=== PATIENT | female | born 1975 | race Hispanic/Latino ===

== ENCOUNTER 2019-01-20 17:22 | Emergency (ER) | payer BC ==
--- NOTE | 2019-01-20 17:38 | CT ---
CT BRAIN 01/20/19 HISTORY: Left arm numbness. Noncontrast enhanced CT images of the brain is obtained on 01/20/19. Noncontrast enhanced CT images of the brain obtained. The brain is unremarkable. No evidence of intra cranial masses, hemorrhages, strokes or contusions seen. Ventricles are of normal size. IMPRESSION: Normal CT brain. POS: [facility]
[2019-01-20 17:52] LABS: #Basophils 0.1 thou/uL (0.0-0.2); #Eosinphils 0.1 thou/uL (0.0-0.7); #Lymphocytes 1.2 thou/uL (1.20-3.40); #Monocytes 0.7 thou/uL (0.11-0.59); %Basophils 0.5 % (0.0-1.0); %Eosinophils 0.7 % (0.0-10.0); %Lymphocytes 11.8 % (21.0-51.0); %Monocytes 6.9 % (0.0-10.0); Hemoglobin 13.9 g/dL (12.0-16.0); Mean Corpuscular HGB CONC 33.6 g/dL (32.0-36.0); Mean Corpuscular Hemoglobin 31.5 pg (27.0-31.0); Mean Corpuscular Volume 93.8 fL (78.0-98.0); Mean Platelet Volume 7.6 fL (7.4-10.4); Platelet Count 205 thou/uL (130-400); RBC Distribution Width 12.2 % (11.5-14.5); Red Blood Cell (RBC) Count 4.41 mill/uL (4.20-5.40)
[2019-01-20 17:59] LABS: PTT 28.1 SEC (22.9-36.1); Prothrombin Time 13.4 SEC (12.0-14.7)
[2019-01-20 18:03] LABS: BHCG - Serum Negative (NEGATIVE); Pregs Control Background? CLEAR/WHITE (CLR/WHITE); Pregs Control Bar Appear? YES (CONTROL BAR)
[2019-01-20 18:06] LABS: ALT (SGPT) 17 U/L (8-55); AST (SGOT) 19 U/L (5-34); Albumin 3.9 g/dL (3.5-5.0); Alkaline Phosphatase 50 U/L (40-150); Anion Gap 14 mmol/L (10-20); BUN (Urea Nitrogen) 9 mg/dL (7.0-18.7); Bilirubin, Total 0.2 mg/dL (0.2-1.2); Calc. Creatinine Clearance 0 mL/min (70-130); Calcium 9.2 mg/dL (7.8-10.44); Carbon Dioxide 21 mmol/L (22-29); Chloride 105 mmol/L (98-107); Estimated GFR-MDRD Greater than 90; Globulin 3.1 g/dL (2.4-3.5); Glucose 95 mg/dL (70-105); Potassium 3.9 mmol/L (3.5-5.1); Sodium 136 mmol/L (136-145)
[2019-01-20] MEDS ORDERED: Metoclopramide HCl 10 MG/2 ML VIAL ONE (18:13)
[2019-01-20] MEDS ORDERED: diphenhydrAMINE 50 MG/ML VIAL ONE (18:13)
[2019-01-20 18:35] LABS: CK (CPK) 92 U/L (29-168)
== END 2019-01-20 20:30 | disposition home or self-care (01) ==
LOC: ERS 17:22
DX: R51 Headache (principal); R20.2 Paresthesia of skin
CPT/HCPCS: 36416; 70450; 80053; 82550; 84484; 84703; 85025; 85610; 85730; 93005; 96361; 96374; 96375; J1200; J2765

== ENCOUNTER 2020-01-06 01:42 | Emergency (ER) | payer BC ==
[2020-01-06] MEDS ORDERED: Ondansetron PF 4 MG/2 ML Vial ONE (02:39)
[2020-01-06 03:07] LABS: #Basophils 0.1 thou/uL (0.0-0.2); #Eosinphils 0.1 thou/uL (0.0-0.7); #Lymphocytes 1.8 thou/uL (1.20-3.40); #Monocytes 0.4 thou/uL (0.11-0.59); #Neutrophils 4.6 thou/uL (1.40-6.50); %Basophils 0.8 % (0.0-1.0); %Eosinophils 1.6 % (0.0-10.0); %Lymphocytes 25.6 % (21.0-51.0); %Monocytes 5.4 % (0.0-10.0); %Neutrophils 66.6 % (42.0-75.0); Hemoglobin 14.2 g/dL (12.0-16.0); Mean Corpuscular HGB CONC 33.9 g/dL (32.0-36.0); Mean Corpuscular Hemoglobin 31.6 pg (27.0-31.0); Mean Corpuscular Volume 93.1 fL (78.0-98.0); Mean Platelet Volume 7.9 fL (7.4-10.4); Platelet Count 247 thou/uL (130-400); RBC Distribution Width 11.9 % (11.5-14.5); White Blood Cell (WBC) Count 6.9 thou/uL (4.8-10.8)
[2020-01-06 03:26] LABS: Acetaminophen Less than 6.0 mcg/mL (10.0-30.0); Alcohol 205 mg/dL (Less than 10); Salicylate Less than 8.0 mg/dL (15.0-30.0)
[2020-01-06 03:27] LABS: ALT (SGPT) 22 U/L (8-55); AST (SGOT) 20 U/L (5-34); Albumin 4.1 g/dL (3.5-5.0); Alkaline Phosphatase 48 U/L (40-110); Anion Gap 13 mmol/L (10-20); BUN (Urea Nitrogen) Less than 4 mg/dL (7.0-18.7); Bilirubin, Total 0.4 mg/dL (0.2-1.2); Calc. Creatinine Clearance 0 mL/min (70-130); Calcium 8.3 mg/dL (7.8-10.44); Carbon Dioxide 20 mmol/L (22-29); Chloride 112 mmol/L (98-107); Estimated GFR-MDRD Greater than 90; Globulin 3.1 g/dL (2.4-3.5); Glucose 97 mg/dL (70-105); Potassium 3.1 mmol/L (3.5-5.1); Protein, Total 7.2 g/dL (6.0-8.3); Sodium 142 mmol/L (136-145)
--- NOTE | 2020-01-06 09:13 | CT ---
PRELIMINARY REPORT/[facility]/EMERGENCY AFTER HOURS PROCEDURE: EXAM: CT Head Without Intravenous Contrast. CLINICAL HISTORY: F44 presents to the ED intoxicated with c/o anxiety. Pt was called to ED by daughter. Family reports that pt drinks each week. Pt was given Zofran by EMS. TECHNIQUE: Axial computed tomography images of the head/brain without intravenous contrast. COMPARISON: None provided. FINDINGS: BRAIN: No acute intraparenchymal hemorrhage. No mass lesion. No CT evidence for acute territorial inf arct. No midline shift or extra-axial collection. VENTRICLES: No hydrocephalus. ORBITS: The orbits are unremarkable. SINUSES AND MASTOIDS: The paranasal sinuses and mastoid air cells are clear. SOFT TISSUES: No significant facial or scalp soft tissue swelling evident. No radiopaque foreign body is seen. BONES: No acute skull fracture. IMPRESSION: No acute intracranial abnormality. ELECTRONICALLY SIGNED BY: Marcelo Urban MD Jan 06, 2020 3:18:27 AM [employer] This report is intended for review by the ordering physician only, in accordance of law. If you recei ve this report in error, please call [facility] at [phone]. FINAL REPORT EMERGENCY AFTER HOURS CT BRAIN WITHOUT CONTRAST: HISTORY: Altered mental status. COMPARISON: CT brain of 01/20/19. FINDINGS: No acute hemorrhage or infarct. No midline shift or mass effect. Ventricular size and extra-axial CSF spaces are normal. Calvarium is intact. The paranasal sinuses and mastoids are clear. IMPRESSION: No acute intracranial abnormality. Findings and impression are concordant with the preliminary report by [facility]. POS: OFF
== END 2020-01-06 05:05 | disposition home or self-care (01) ==
LOC: ERS 01:42
DX: F10.129 Alcohol abuse with intoxication, unspecified (principal); Y90.7 Blood alcohol level of 200-239 mg/100 ml
CPT/HCPCS: 36415; 70450; 80053; 80307; 85025; 96361; 96374; J2405

== ENCOUNTER 2021-12-15 20:42 | Emergency (ER) | payer BC ==
[2021-12-15 22:37] LABS: #Eosinphils 0.3 thou/uL (0.0-0.7); #Lymphocytes 2.1 thou/uL (1.20-3.40); #Monocytes 0.5 thou/uL (0.11-0.59); #Neutrophils 3.4 thou/uL (1.40-6.50); %Basophils 0.1 % (0.0-1.0); %Lymphocytes 32.6 % (21.0-51.0); %Monocytes 8.6 % (0.0-10.0); %Neutrophils 53.6 % (42.0-75.0); Hemoglobin 13.1 g/dL (12.0-16.0); Mean Corpuscular HGB CONC 34.1 g/dL (32.0-36.0); Mean Corpuscular Hemoglobin 31.3 pg (27.0-31.0); Mean Corpuscular Volume 91.9 fL (78.0-98.0); Mean Platelet Volume 7.3 fL (7.4-10.4); Platelet Count 231 thou/uL (130-400); RBC Distribution Width 12.1 % (11.5-14.5); Red Blood Cell (RBC) Count 4.18 mill/uL (4.20-5.40); White Blood Cell (WBC) Count 6.3 thou/uL (4.8-10.8)
[2021-12-15 22:57] LABS: ALT (SGPT) 45 U/L (8-55); AST (SGOT) 25 U/L (5-34); Albumin 3.7 g/dL (3.5-5.0); Alkaline Phosphatase 55 U/L (40-110); Anion Gap 12 mmol/L (10-20); BUN (Urea Nitrogen) 10 mg/dL (7.0-18.7); Bilirubin, Total 0.3 mg/dL (0.2-1.2); Calc. Creatinine Clearance 0 mL/min (70-130); Calcium 8.5 mg/dL (7.8-10.44); Carbon Dioxide 24 mmol/L (22-29); Chloride 106 mmol/L (98-107); Glucose 89 mg/dL (70-105); Potassium 3.9 mmol/L (3.5-5.1); Protein, Total 6.7 g/dL (6.0-8.3); Sodium 138 mmol/L (136-145)
== END 2021-12-15 23:35 | disposition home or self-care (01) ==
LOC: ERS 20:42
DX: L03.213 Periorbital cellulitis (principal)
CPT/HCPCS: 36415; 80053; 85025; 99283

== ENCOUNTER 2023-10-05 15:14 | Emergency (ER) | payer BC ==
[2023-10-05] MEDS ORDERED: Ketorolac Tromethamine 30 MG/ML VIAL ONE (17:40)
[2023-10-05] MEDS ORDERED: Orphenadrine Citrate 60 MG/2 ML VIAL ONE (17:40)
[2023-10-05] MEDS ORDERED: HYDROcodone/Acetaminophen 5/325 mg Tablet ONE (18:34)
== END 2023-10-05 18:38 | disposition home or self-care (01) ==
LOC: ERS 15:14
DX: M54.31 Sciatica, right side (principal); M54.12 Radiculopathy, cervical region
CPT/HCPCS: 96372; 99283; J1885; J2360

== ENCOUNTER 2023-10-06 16:30 | Observation (INO) | payer BC ==
[~2023-10-06 16:30] MED LIST: Iopamidol-370 76% 500 ML MDV (1 ML CHARGE) ONE
[2023-10-06] MEDS ORDERED: Diazepam 5 MG TAB ONE (19:13)
[2023-10-06] MEDS ORDERED: Ketorolac Tromethamine 30 MG/ML VIAL ONE (19:13)
[2023-10-06 19:27] LABS: Bacteria/HPF None Seen HPF (None Seen); Bilirubin Negative (Negative); Blood, Urine Negative (Negative); CAUTI Indications for Culture Pelvic or flank pain; Clarity Clear (Clear); Glucose, Urine (Dipstick) Greater than 1000 mg/dL (Negative); Ketone, Urine 10 mg/dL (Negative); Leukocyte Negative Leu/uL (Negative); Mucous/LPF Rare LPF (<2+); Nitrite Negative (Negative); Protein, Urine (Dipstick) 20 mg/dL (Neg-Trace); RBC/HPF 0-3 HPF (0-3); Specific Gravity, Urine 1.035 (1.002-1.036); Urobilinogen Normal mg/dL (Less than 2)
[2023-10-06 19:31] LABS: Urine Culture Reflex No No
[2023-10-06 22:19] LABS: #Neutrophils 11.6 thou/uL (1.40-6.50); %Basophils 0.2 % (0.0-1.0); %Eosinophils 0.1 % (0.0-10.0); %Lymphocytes 14.5 % (21.0-51.0); %Monocytes 6.9 % (0.0-10.0); %Neutrophils 77.9 % (42.0-75.0); Hematocrit 38.9 % (36.0-47.0); Hemoglobin 13.1 g/dL (12.0-16.0); Mean Corpuscular HGB CONC 33.7 g/dL (32.0-36.0); Mean Corpuscular Hemoglobin 30.8 pg (27.0-31.0); Mean Corpuscular Volume 91.3 fl (78.0-98.0); Platelet Count 277 10x3/uL (130-400); RBC Distribution Width 13.4 % (11.5-14.5); Red Blood Cell (RBC) Count 4.26 mill/uL (4.20-5.40); White Blood Cell (WBC) Count 14.9 10x3/uL (4.8-10.8)
[2023-10-06 22:20] LABS: Actual Bicarbonate (HCO3v) 21.3 mEq/L (22-28); Calcium, Ionized (venous) 1.12 mmol/L (1.16-1.32); Chloride (VBG) 105 mmol/L (98-106); Hematocrit-VBG 40 % (36.0-47.0); Hemoglobin (Hb) 13.7 g/dL (11.7-16.0); Potassium (VBG) 3.44 mmol/L (3.70-5.30); Sodium 139 mmol/L (133-146); pH (venous) 7.439 (7.32-7.43)
[2023-10-06 22:44] LABS: ALT (SGPT) 705 U/L (8-55); AST (SGOT) 352 U/L (5-34); Albumin 3.6 g/dL (3.5-5.0); Alkaline Phosphatase 80 U/L (40-110); Anion Gap 13 mmol/L (10-20); BUN (Urea Nitrogen) 16 mg/dL (7.0-18.7); Bilirubin, Total 0.4 mg/dL (0.2-1.2); Calc. Creatinine Clearance 0 mL/min (70-130); Calcium 8.7 mg/dL (7.8-10.44); Carbon Dioxide 22 mmol/L (22-29); Chloride 109 mmol/L (98-107); Estimated GFR 113; Globulin 2.8 g/dL (2.4-3.5); Glucose 145 mg/dL (70-105); Magnesium 1.9 mg/dL (1.6-2.6); Potassium 3.4 mmol/L (3.5-5.1); Protein, Total 6.4 g/dL (6.0-8.3); Sodium 141 mmol/L (136-145)
[2023-10-06] MEDS ORDERED: Potassium Chloride 20 MEQ TAB ONE (23:25)
[2023-10-06] MEDS ORDERED: Lidocaine 4% Patch TD SCH (23:30)
[2023-10-06 23:33] LABS: Acetaminophen Less than 10 mcg/mL (10.0-30.0)
[2023-10-06 23:52] LABS: HBCM Index 0.08 S/CO (0-0.79); HBSAg Index 0.18 S/CO (0-0.99); Hep A IgM AB Non-Reactive S/CO (NonReactive); Hep A IgM S/CO 0.24 S/CO (0-0.79); Hep B Surf Ag Non-Reactive S/CO (NonReactive); Hep C IgG Ab Non-Reactive S/CO (NonReactive); Hep C Index 0.08 S/CO (0-0.79); Hepatitis B Core IgM Abs Non-Reactive S/CO (NonReactive)
[2023-10-07] MEDS ORDERED: Ondansetron ODT 4 MG TAB PO PRN (03:19)
[2023-10-07] MEDS ORDERED: Acetaminophen 650 MG Suppository PR PRN (03:19)
[2023-10-07] MEDS ORDERED: Acetaminophen 325 MG TAB PO PRN (03:19)
[2023-10-07] MEDS ORDERED: Ondansetron PF 4 MG/2 ML Vial IVP PRN (03:19)
[2023-10-07 05:48] VITALS: BMI 24.7
[2023-10-07] MEDS: Morphine 4 MG/ML VIAL SLOW IVP PRN ×2 (05:55→10:28)
[2023-10-07 07:07] LABS: ALT (SGPT) 607 U/L (8-55); AST (SGOT) 205 U/L (5-34); Albumin 3.4 g/dL (3.5-5.0); Alkaline Phosphatase 62 U/L (40-110); Anion Gap 11 mmol/L (10-20); BUN (Urea Nitrogen) 13 mg/dL (7.0-18.7); Bilirubin, Total 0.3 mg/dL (0.2-1.2); Calc. Creatinine Clearance 125 mL/min (70-130); Calcium 8.7 mg/dL (7.8-10.44); Carbon Dioxide 25 mmol/L (22-29); Chloride 109 mmol/L (98-107); Estimated GFR 113; Globulin 2.8 g/dL (2.4-3.5); Glucose 93 mg/dL (70-105); Protein, Total 6.2 g/dL (6.0-8.3); Sodium 141 mmol/L (136-145)
[2023-10-07 07:24] LABS: Hemoglobin A1c 5.3 % (4.0-6.0)
[2023-10-07 07:43] LABS: Cardiac Risk 2.8 (Less than 4.5)
[2023-10-07] MEDS ORDERED: Senokot 8.6 MG TAB PO SCH (11:15)
[2023-10-07] MEDS ORDERED: HYDROcodone/Acetaminophen 5/325 mg Tablet PO PRN ×2 (12:15)
[2023-10-07] MEDS ORDERED: Transdermal Patch Removal TOP SCH (13:00)
[2023-10-07] MEDS ORDERED: Ketorolac Tromethamine 30 MG/ML VIAL IVP SCH (15:30)
[2023-10-07] MEDS ORDERED: Gabapentin 300 MG CAP PO SCH (15:45)
[2023-10-07] MEDS ORDERED: Cyclobenzaprine 10 MG TAB PO PRN (15:45)
[2023-10-07] MEDS: Ketorolac Tromethamine 30 MG/ML VIAL IVP SCH (20:39)
[2023-10-07] MEDS: Gabapentin 300 MG CAP PO SCH (20:39)
[2023-10-07] MEDS: Senokot 8.6 MG TAB PO SCH (20:40)
[2023-10-08] MEDS: Ketorolac Tromethamine 30 MG/ML VIAL IVP SCH ×2 (04:43→09:53)
[2023-10-08 05:42] LABS: #Eosinphils 0.3 thou/uL (0.0-0.7); #Monocytes 0.5 thou/uL (0.11-0.59); #Neutrophils 3.3 thou/uL (1.40-6.50); %Basophils 0.5 % (0.0-1.0); %Eosinophils 3.5 % (0.0-10.0); %Lymphocytes 45.7 % (21.0-51.0); %Monocytes 6.6 % (0.0-10.0); %Neutrophils 43.3 % (42.0-75.0); Hematocrit 40.2 % (36.0-47.0); Hemoglobin 13.1 g/dL (12.0-16.0); Mean Corpuscular HGB CONC 32.6 g/dL (32.0-36.0); Mean Corpuscular Hemoglobin 30.2 pg (27.0-31.0); Mean Corpuscular Volume 92.6 fl (78.0-98.0); Mean Platelet Volume 9.9 fL (7.4-10.4); Platelet Count 265 10x3/uL (130-400); RBC Distribution Width 13.6 % (11.5-14.5); Red Blood Cell (RBC) Count 4.34 mill/uL (4.20-5.40); White Blood Cell (WBC) Count 7.7 10x3/uL (4.8-10.8)
[2023-10-08 06:15] LABS: ALT (SGPT) 416 U/L (8-55); AST (SGOT) 87 U/L (5-34); Albumin 3.1 g/dL (3.5-5.0); Alkaline Phosphatase 65 U/L (40-110); Anion Gap 11 mmol/L (10-20); BUN (Urea Nitrogen) 20 mg/dL (7.0-18.7); Bilirubin, Total 0.2 mg/dL (0.2-1.2); Calc. Creatinine Clearance 119 mL/min (70-130); Calcium 8.6 mg/dL (7.8-10.44); Carbon Dioxide 26 mmol/L (22-29); Chloride 104 mmol/L (98-107); Estimated GFR 112; Globulin 2.8 g/dL (2.4-3.5); Glucose 86 mg/dL (70-105); Potassium 4.2 mmol/L (3.5-5.1); Protein, Total 5.9 g/dL (6.0-8.3); Sodium 137 mmol/L (136-145)
[2023-10-08 08:07] VITALS: BP 109/71; TEMP 97.9
[2023-10-08] MEDS: Gabapentin 300 MG CAP PO SCH (09:51)
[2023-10-08] MEDS: Senokot 8.6 MG TAB PO SCH (09:52)
[2023-10-10] MEDS ORDERED: FLU VACC QS2023-24(6MOS UP)/PF 60 MCG/0.5 ML SYRINGE IM ONE (06:15)
== END 2023-10-08 14:41 | disposition home or self-care (01) ==
LOC: ERS 16:30 → T4-B 10-07 03:02
PROVIDERS: ADMIT Student in an Organized Health Care Education/Training Program; ATTEND Family Medicine
DX: M54.17 Radiculopathy, lumbosacral region (principal); M51.26 Other intervertebral disc displacement, lumbar region; E88.89 Other specified metabolic disorders; Z90.710 Acquired absence of both cervix and uterus; Z90.49 Acquired absence of other specified parts of digestive tract
CPT/HCPCS: 36415; 72148; 74177; 76705; 80053; 80061; 80074; 80143; 81001; 82010; 82550; 82805; 83036; 83735; 85025; 85379; 86140; 96374; 96375; 96376; 80307; G0378; J1885; J2270; Q9967

== ENCOUNTER 2024-07-29 23:59 | Emergency (ER) | payer BC ==
[2024-07-30 02:41] LABS: #Basophils 0.04 10x3/uL (0.0-0.2); %Basophils 0.6 % (0.0-1.0); %Eosinophils 3.5 % (0.0-10.0); %Lymphocytes 41.3 % (21.0-51.0); %Monocytes 6.6 % (0.0-10.0); %Neutrophils 47.8 % (42.0-75.0); Hematocrit 40.8 % (36.0-47.0); Mean Corpuscular HGB CONC 34.3 g/dL (32.0-36.0); Mean Corpuscular Hemoglobin 30.2 pg (27.0-31.0); Mean Corpuscular Volume 88.1 fL (78.0-98.0); Mean Platelet Volume 10.5 fL (7.4-10.4); Platelet Count 218 10x3/uL (130-400); RBC Distribution Width 13.9 % (11.5-14.5); Red Blood Cell (RBC) Count 4.63 mill/uL (4.20-5.40)
[2024-07-30 02:56] LABS: ALT (SGPT) 17 U/L (8-55); AST (SGOT) 18 U/L (5-34); Albumin 3.7 g/dL (3.5-5.0); Alkaline Phosphatase 84 U/L (40-110); Anion Gap 14 mmol/L (10-20); BUN (Urea Nitrogen) 15 mg/dL (7.0-18.7); Bilirubin, Total 0.2 mg/dL (0.2-1.2); Calc. Creatinine Clearance 0 mL/min (70-130); Calcium 9.1 mg/dL (7.8-10.44); Carbon Dioxide 25 mmol/L (22-29); Chloride 109 mmol/L (98-107); Estimated GFR 92; Globulin 3.5 g/dL (2.4-3.5); Glucose 103 mg/dL (70-105); Potassium 4.1 mmol/L (3.5-5.1); Protein, Total 7.2 g/dL (6.0-8.3); Sodium 144 mmol/L (136-145)
[2024-07-30 03:01] LABS: Troponin I Less than 0.010 ng/mL (< 0.028)
== END 2024-07-30 09:40 | disposition home or self-care (01) ==
LOC: ERS 23:59
DX: M25.512 Pain in left shoulder (principal)
CPT/HCPCS: 36415; 80053; 84484; 85025; 93005